=== PATIENT | female | born 1975 | race Caucasian/White ===

== ENCOUNTER 2021-02-21 12:40 | Outpatient (CLI) | payer BC | END 2021-02-21 23:59 | disposition home or self-care (01) | LOC: LAB.N 12:40 | PROVIDERS: ATTEND Physician Assistant Medical | DX: B34.9 Viral infection, unspecified (principal); R05.9 Cough, unspecified; Z20.822 Contact with and (suspected) exposure to COVID-19 | CPT/HCPCS: 87275; 87276 ==

== ENCOUNTER 2022-05-12 01:29 | Emergency (ER) | payer BC ==
--- OUTSIDE RECORDS SUMMARY | 2022-05-12 01:39 | EXTERNAL MEDICAL SUMMARY RPT | Continuity of Care Document ---
:1975 Author Organization [facility] Address [address] [place] [address] Phone Allergies No information. Encounters No information. Functional Status No information. Immunizations No information. Medications No information. Problems date description facility 2022-04-12 13:23 Nontoxic multinodular goiter [facility] 2022-05-07 09:12 Nontoxic multinodular goiter [facility] Procedures No information. Results/Labs test date author facility value unit interpret ation Result panel 1 (unknown) (no (unknown) (unknown) (no value) (units (unk nown) date) unknown) (unknown) (no (unknown) (unknown) * FNA if 1 cm or (units (unknown) date) larger, follow up unknown) if 0.5 cm or larger (every year for 5 (unknown) (no (unknown) (unknown) * FNA if 1.5 cm (units (unknown) date) or larger, follow unknown) up if 1 cm or larger (at 1, 2, 3, and 5 (unknown) (no (unknown) (unknown) * FNA if 2.5 cm (units (unknown) date) or larger, follow unknown) up if 1.5 cm or larger (at 1, 3, and 5 (unknown) (no (unknown) (unknown) 04/12/22 (units (unkno wn) date) unknown) (unknown) (no (unknown) (unknown) 1. Bilateral (units (u nknown) date) thyroid nodules unknown) as described. Recommend continued followup (unknown) (no (unknown) (unknown) [address] [place] [address] (units (unknown) date) unknown) (unknown) (no (unknown) (unknown) [id number] (units (unkno wn) date) unknown) (unknown) (no (unknown) (unknown) ACR TI-RADS (units (un known) date) category: Mildly unknown) suspicious (unknown) (no (unknown) (unknown) ACR TI-RADS (units (un known) date) category: unknown) Moderately suspicious (unknown) (no (unknown) (unknown) ACR TI-RADS (units (un known) date) definitions and unknown) recommendations: (unknown) (no (unknown) (unknown) Accession (units (unkn own) date) Number: unknown) [id number] (unknown) (no (unknown) (unknown) Age/Sex: 46 / F (units (unknown) date) Date of Service: unknown) (unknown) (no (unknown) (unknown) [place], [place] (units ( unknown) date) [id number] unknown) (unknown) (no (unknown) (unknown) Approved by: (units (u nknown) date) Lanre Gonzales M.D. unknown) on 04/14/2022 at 11:34 (unknown) (no (unknown) (unknown) COMPARISON: (units (un known) date) None. unknown) (unknown) (no (unknown) (unknown) Caution: Report (units (unknown) date) not yet finalized unknown) and possibly incomplete! (unknown) (no (unknown) (unknown) Composition: (units (u nknown) date) Predominantly unknown) solid (unknown) (no (unknown) (unknown) Composition: (units (u nknown) date) Solid unknown) (unknown) (no (unknown) (unknown) : 1975 (units (unknown) date) Acct:[id number] unknown) (unknown) (no (unknown) (unknown) Dictated by: (units (u nknown) date) Harjeet Grady RRA unknown) Interpreted: Lanre Gonzales MD on 04/12/2022 at 14:49 (unknown) (no (unknown) (unknown) Draft (units (unkno wn) date) unknown) (unknown) (no (unknown) (unknown) Echogenic foci: (units (unknown) date) None unknown) (unknown) (no (unknown) (unknown) Echogenic foci: (units (unknown) date) None. unknown) (unknown) (no (unknown) (unknown) Echogenicity: (units ( unknown) date) Hypoechoic unknown) (unknown) (no (unknown) (unknown) Echogenicity: (units ( unknown) date) Isoechoic unknown) (unknown) (no (unknown) (unknown) FINDINGS: (units (unkn own) date) unknown) (unknown) (no (unknown) (unknown) IMPRESSION: (units (un known) date) unknown) (unknown) (no (unknown) (unknown) INDICATIONS: (units (u nknown) date) NONTOXIC unknown) MULTINODULAR GOITER (unknown) (no (unknown) (unknown) [facility] (units (unknown) date) unknown) (unknown) (no (unknown) (unknown) Isthmus: 2 mm (units ( unknown) date) thick. unknown) (unknown) (no (unknown) (unknown) Left: Thyroid (units ( unknown) date) lobe measures 3.5 unknown) x 1.7 x 1.5 cm, and is diffusely heterogeneous (unknown) (no (unknown) (unknown) Loc: [place] (units (unkno wn) date) unknown) (unknown) (no (unknown) (unknown) Location: Left (units (unknown) date) inferior lateral unknown) (unknown) (no (unknown) (unknown) Location: Left (units (unknown) date) inferior medial unknown) (unknown) (no (unknown) (unknown) Location: Left (units (unknown) date) inferior unknown) (unknown) (no (unknown) (unknown) Location: Right (units (unknown) date) inferior unknown) (unknown) (no (unknown) (unknown) Margins: Smooth (units (unknown) date) unknown) (unknown) (no (unknown) (unknown) Nodule number: 1 (units (unknown) date) unknown) (unknown) (no (unknown) (unknown) Nodule number: 2 (units (unknown) date) unknown) (unknown) (no (unknown) (unknown) Nodule number: 3 (units (unknown) date) unknown) (unknown) (no (unknown) (unknown) Nodule number: 4 (units (unknown) date) unknown) (unknown) (no (unknown) (unknown) Ordering (units (unkno wn) date) Provider: unknown) Kiki Henriquez P.A-C (unknown) (no (unknown) (unknown) PROCEDURE: US (units ( unknown) date) THYROID unknown) (unknown) (no (unknown) (unknown) Patient: (units (unkno wn) date) JulyWendi Vidales MR#: unknown) [id number] (unknown) (no (unknown) (unknown) Procedure: US (units ( unknown) date) thyroid unknown) (unknown) (no (unknown) (unknown) Real-time (units (unkn own) date) scanning was unknown) performed of the thyroid gland, with image (unknown) (no (unknown) (unknown) Right: Thyroid (units (unknown) date) lobe measures 3.8 unknown) x 1.5 x 1.8 cm, and is diffusely (unknown) (no (unknown) (unknown) Shape: wider (units (u nknown) date) than tall. unknown) (unknown) (no (unknown) (unknown) Signed (units (unkno wn) date) unknown) (unknown) (no (unknown) (unknown) Size: 0.5 x 0.6 (units (unknown) date) x 0.7 cm. unknown) (unknown) (no (unknown) (unknown) Size: 1.1 x 0.8 (units (unknown) date) x 0.9 cm. unknown) (unknown) (no (unknown) (unknown) Size: 1.3 x 0.8 (units (unknown) date) x 0.9 cm. unknown) (unknown) (no (unknown) (unknown) Size: 1.3 x 1.1 (units (unknown) date) x 0.9 cm. unknown) (unknown) (no (unknown) (unknown) TECHNIQUE: (units (unk nown) date) unknown) (unknown) (no (unknown) (unknown) TI-RADS 1 (units (unkn own) date) (benign): 0 unknown) points. FNA not needed. (unknown) (no (unknown) (unknown) TI-RADS 2 (not (units (unknown) date) suspicious): 2 unknown) points. FNA not needed. (unknown) (no (unknown) (unknown) TI-RADS 3 (units (unkn own) date) (mildly unknown) suspicious): 3 points. (unknown) (no (unknown) (unknown) TI-RADS 4 (units (unkn own) date) (moderately unknown) suspicious): 4-6 points. (unknown) (no (unknown) (unknown) TI-RADS 5 (units (unkn own) date) (highly unknown) suspicious): 7 points or more. (unknown) (no (unknown) (unknown) Total points: 3 (units (unknown) date) unknown) (unknown) (no (unknown) (unknown) Total points: 4 (units (unknown) date) unknown) (unknown) (no (unknown) (unknown) Transcribed by: (units (unknown) date) MELI on unknown) 04/12/2022 at 14:51 (unknown) (no (unknown) (unknown) Ultrasound (units (unk nown) date) Report unknown) (unknown) (no (unknown) (unknown) detailed below. (units (unknown) date) unknown) (unknown) (no (unknown) (unknown) documentation. (units (unknown) date) unknown) (unknown) (no (unknown) (unknown) echotexture. (units (u nknown) date) unknown) (unknown) (no (unknown) (unknown) heterogeneous in (units (unknown) date) unknown) (unknown) (no (unknown) (unknown) in (units (unkno wn) date) unknown) (unknown) (no (unknown) (unknown) ultrasound as (units ( unknown) date) unknown) (unknown) (no (unknown) (unknown) years). (units (unkno wn) date) unknown) Social History No information. Vital Signs No information.
--- NOTE | 2022-05-12 01:56 | ED Physician Documentation ---
History of Present Illness - Stated complaint Stated Complaint: ABD PX/CHEST PX - Chief complaint Chief Complaint: Abd Pain - History obtained from History obtained from: Patient - Additonal information Additional information: 47-year-old woman with history of ADHD, borderline high blood pressure, presents with epigastric abdominal pain since 12 noon. This past day with associated nausea and and loose stools. Her daughter had a stomach virus last week and she is pretty sure that is what is going on. She took some leftover Zofran at home with relief but then woke up again in the middle of the night with epigastric pain that was burning. Review of Systems Constitutional: reports: Chills, Myalgias, Fatigue Cardiac: denies: Chest pain / pressure GI: reports: Abdominal Pain, Nausea, Diarrhea. denies: Vomiting, Bloody / black stool : denies: Dysuria PD PAST MEDICAL HISTORY - Past Surgical History Past Surgical History: No - Present Medications Home Medications: Ambulatory Orders Medication Instructions Recorded Confirmed Dextroamphetamine/Amphetamine 30 mg PO DAILY 05/12/22 05/12/22 [Adderall 30 mg Tablet] Ondansetron Odt [Zofran Odt] 4 mg TL Q6H PRN #10 tablet 05/12/22 - Allergies Allergies/Adverse Reactions: Allergies Allergy/AdvReac Type Severity Reaction Status Date / Time latex AdvReac Unknown Verified 05/12/22 01:37 Penicillins AdvReac Unknown Verified 05/12/22 01:37 cats AdvReac Unknown Uncoded 05/12/22 01:37 - Social History Does the pt smoke?: No Smoking Status: Never smoker Does the pt drink ETOH?: Yes Does the pt have substance abuse?: No - Immunizations Immunizations are current?: Yes - POLST Patient has POLST: No PD ED PE NORMAL - Vitals Vital signs reviewed: Yes - General General: Alert and oriented X 3, No acute distress, Well developed/nourished - HEENT HEENT: Atraumatic, PERRL, EOMI - Neck Neck: Supple, no meningeal sign - Cardiac Cardiac: RRR - Respiratory Respiratory: No respiratory distress, Clear bilaterally - Abdomen Abdomen: Non tender, Non distended, Other (Discomfort epigastric palpation) Results - Vitals Vitals: Vital Signs - 24 hr 05/12/22 01:38 Temperature 36.9 C Heart Rate 98 Respiratory 16 Rate Blood Pressure 135/89 H O2 Saturation 97 Oxygen O2 Source Room air - Labs Labs: Laboratory Tests 05/12/22 05/12/22 01:51 01:51 WBC 7.8 RBC 5.33 Hgb 15.7 Hct 47.4 H MCV 88.9 MCH 29.5 MCHC 33.1 RDW 12.3 Plt Count 321 MPV 9.0 Neut # (Auto) 7.0 H Lymph # (Auto) 0.3 L [place] # (Auto) 0.4 Eos # (Auto) 0.1 Baso # (Auto) 0.0 Absolute Nucleated RBC 0.00 Nucleated RBC % 0.0 Sodium 140 Potassium 3.6 Chloride 102 Carbon Dioxide 28 Anion Gap 10.0 BUN 16 Creatinine 0.7 Estimated GFR (MDRD) 90 Glucose 128 H Calcium 9.1 Total Bilirubin 0.6 AST 19 ALT 18 Alkaline Phosphatase 78 Total Protein 8.1 Albumin 4.3 Globulin 3.8 Albumin/Globulin Ratio 1.1 Lipase 29 PD Medical Decision Making - ED course ED course: 47-year-old woman presents with likely viral gastroenteritis. Symptomatic care provided Including Zofran, Pepcid, IV fluids. CBC, abdominal panel Ordered. will reevaluate. Patient feeling better with meds. labwork noncontributory. plan to f/u outpatient pcp or walk in clinic. return precautions given. symptomatic care discussed. Departure - Departure Disposition: 01 Home, Self Care Clinical Impression: Abdominal pain, Diarrhea, Nausea Condition: Good Instructions: ED Diarrhea Viral Prescriptions: Ondansetron Odt [Zofran Odt] 4 mg TL Q6H PRN #10 tablet PRN Reason: Nausea / Vomiting Comments: You were seen in the emergency department for abdominal pain, nausea, and loose stool. You likely have a stomach virus and will need to stay well-hydrated and get lots of rest. Follow-up with your primary care provider. Return to the emergency department for new or worsening symptoms or other concerns.Electronic prescription for Zofran sent to your [facility] pharmacy.
[2022-05-12 02:02] LABS: BASOPHILS % (AUTO) 0.3 %; EOSINOPHILS # (AUTO) 0.1 10^3/uL (0.0-0.7); EOSINOPHILS % (AUTO) 0.6 %; HCT - HEMATOCRIT 47.4 % (37.0-47.0); HGB - HEMOGLOBIN 15.7 g/dL (12.0-16.0); LYMPHOCYTES # (AUTO) 0.3 10^3/uL (1.5-3.5); LYMPHOCYTES % (AUTO) 3.2 %; MEAN CORPUSCULAR HEMOGLOBIN 29.5 pg (27.0-31.0); MEAN CORPUSCULAR HGB CONC 33.1 g/dL (32.0-36.0); MEAN CORPUSCULAR VOLUME 88.9 fL (81.0-99.0); MONOCYTES # (AUTO) 0.4 10^3/uL (0.0-1.0); MONOCYTES % (AUTO) 5.4 %; NEUTROPHILS % (AUTO) 90.1 %; PLT - PLATELET COUNT 321 10^3/uL (130-450); RED BLOOD COUNT 5.33 10^6/uL (4.20-5.40); RED CELL DISTRIBUTION WIDTH 12.3 % (12.0-15.0); WHITE BLOOD COUNT 7.8 x10^3/uL (4.8-10.8)
[2022-05-12 02:12] LABS: ALBUMIN 4.3 g/dL (3.2-5.5); ALBUMIN/GLOBULIN RATIO 1.1 (1.0-2.2); BILIRUBIN,TOTAL 0.6 mg/dL (0.2-1.0); CALCIUM 9.1 mg/dL (8.5-10.3); CREATININE 0.7 mg/dL (0.4-1.0); POTASSIUM 3.6 mmol/L (3.5-5.0); TOTAL PROTEIN 8.1 g/dL (6.7-8.2)
[2022-05-12] MEDS: ONDANSETRON 4 MG/2 ML VIAL IVP STA (02:14)
[2022-05-12] MEDS: FAMOTIDINE 20 MG/2 ML VIAL IVP STA (02:15)
[2022-05-12] MEDS: SODIUM CHLORIDE 0.9% 1,000 ML IV STA (02:15)
[2022-05-12 03:03] VITALS: BP 151/99
== END 2022-05-12 03:03 | disposition home or self-care (01) ==
LOC: ED 01:29
DX: R10.13 Epigastric pain (principal); R11.0 Nausea; R19.7 Diarrhea, unspecified
CPT/HCPCS: 36415; 80053; 83690; 85025; 96361; 96374; 96375; 99283

== ENCOUNTER 2023-01-14 21:21 | Emergency (ER) | payer BC ==
[2023-01-14 21:51] LABS: BILIRUBIN,URINE NEGATIVE (NEGATIVE); GLUCOSE, URINE (UA) NEGATIVE (NEGATIVE); KETONES,URINE (UA) TRACE mg/dL (NEGATIVE); LEUKOCYTE ESTERASE, URINE NEGATIVE (NEGATIVE); NITRITE,URINE NEGATIVE (NEGATIVE); OCCULT BLOOD,URINE SMALL (NEGATIVE); PH,URINE 6.5 PH (5.0-7.5); PROTEIN,URINE 30 mg/dL (NEGATIVE); UROBILINOGEN,URINE 4 E.U./dL (NORMAL)
[2023-01-14 21:52] LABS: BASOPHILS % (AUTO) 0.3 %; EOSINOPHILS % (AUTO) 0.4 %; HCT - HEMATOCRIT 46.8 % (37.0-47.0); HGB - HEMOGLOBIN 15.7 g/dL (12.0-16.0); LYMPHOCYTES # (AUTO) 0.5 10^3/uL (1.5-3.5); LYMPHOCYTES % (AUTO) 6.8 %; MEAN CORPUSCULAR HEMOGLOBIN 29.7 pg (27.0-31.0); MEAN CORPUSCULAR HGB CONC 33.5 g/dL (32.0-36.0); MEAN CORPUSCULAR VOLUME 88.5 fL (81.0-99.0); MEAN PLATELET VOLUME 9.2 fL (7.9-10.8); MONOCYTES # (AUTO) 0.4 10^3/uL (0.0-1.0); MONOCYTES % (AUTO) 5.4 %; NEUTROPHILS # (AUTO) 6.8 10^3/uL (1.5-6.6); NEUTROPHILS % (AUTO) 86.8 %; PLT - PLATELET COUNT 344 10^3/uL (130-450); RED BLOOD COUNT 5.29 10^6/uL (4.20-5.40); RED CELL DISTRIBUTION WIDTH 12.3 % (12.0-15.0); WHITE BLOOD COUNT 7.8 x10^3/uL (4.8-10.8)
[2023-01-14 21:59] VITALS: O2SAT 100
[2023-01-14 22:00] LABS: CLARITY,URINE CLEAR (CLEAR); HCG UR QUAL NEGATIVE; SQUAMOUS EPITHELIAL CELL,UR MANY Squamous (<= Few); WBC,URINE 0-3 /HPF (0-5)
[2023-01-14 22:01] LABS: BACTERIA,URINE Rare /HPF (None Seen); MUCUS,URINE Moderate Strands
[2023-01-14 22:08] LABS: ALBUMIN 4.3 g/dL (3.2-5.5); ALBUMIN/GLOBULIN RATIO 1.3 (1.0-2.2); BILIRUBIN,TOTAL 0.7 mg/dL (0.2-1.0); CALCIUM 8.8 mg/dL (8.5-10.3); CREATININE 0.7 mg/dL (0.6-1.3); POTASSIUM 3.5 mmol/L (3.5-4.5); TOTAL PROTEIN 7.5 g/dL (6.4-8.9)
--- NOTE | 2023-01-14 22:35 | ED Physician Documentation ---
PD HPI ABD PAIN - Stated complaint Stated Complaint: ABD PX/N/V - Chief complaint Chief Complaint: Abd Pain - History obtained from History obtained from: Patient - Additional information Additional information: HPI from patient. Patient woke from sleep at approximately 2 M this morning with nausea , vomiting, and abdominal pain across upper abdomen. Symptoms improved significantly by 7 AM and she felt well most of the day until symptoms rapidly returned at 7:30 PM tonight. Denies h/o similar symptoms. No inciting, exacerbating, nor ameliorating factors. Review of Systems Constitutional: denies: Fever, Chills, Sweats Cardiac: reports: Reviewed and negative Respiratory: reports: Reviewed and negative GI: reports: Abdominal Pain, Nausea, Vomiting. denies: Abdominal Swelling, Constipation, Diarrhea : denies: Dysuria, Frequency PD PAST MEDICAL HISTORY - Past Medical History Past Medical History: Yes Cardiovascular: Hypertension - Past Surgical History Past Surgical History: No - Present Medications Home Medications: Ambulatory Orders Medication Instructions Recorded Confirmed Dextroamphetamine/Amphetamine 30 mg PO DAILY 05/12/22 05/12/22 [Adderall 30 mg Tablet] Ondansetron Odt [Zofran Odt] 4 mg TL Q6H PRN #10 tablet 05/12/22 Ondansetron Odt [Zofran] 4 mg TL Q6H PRN #10 tablet 01/15/23 - Allergies Allergies/Adverse Reactions: Allergies Allergy/AdvReac Type Severity Reaction Status Date / Time latex AdvReac Unknown Verified 01/14/23 21:31 Penicillins AdvReac Unknown Verified 01/14/23 21:31 cats AdvReac Unknown Uncoded 01/14/23 21:31 - Social History Does the pt smoke?: No Smoking Status: Never smoker Does the pt drink ETOH?: No Does the pt have substance abuse?: No - Immunizations Immunizations are current?: Yes - POLST Patient has POLST: No PD ED PE NORMAL - Vitals Vital signs reviewed: Yes - General General: Alert and oriented X 3, No acute distress, Well developed/nourished - HEENT HEENT: Moist mucous membranes - Cardiac Cardiac: RRR, No murmur - Respiratory Respiratory: No respiratory distress, Clear bilaterally - Abdomen Abdomen: Normal bowel sounds, Soft, Non tender, Non distended - Back Back: No CVA TTP Results - Vitals Vitals: Vital Signs - 24 hr 01/14/23 01/14/23 01/14/23 21:27 21:43 23:31 Temperature 37.1 C 36.5 C 36.5 C Heart Rate 108 H 78 76 Respiratory 18 20 18 Rate Blood Pressure 98/70 127/85 H 124/82 H O2 Saturation 98 100 100 Oxygen O2 Source Room air - Labs Labs: Laboratory Tests 01/14/23 01/14/23 01/14/23 21:44 21:44 21:45 WBC 7.8 RBC 5.29 Hgb 15.7 Hct 46.8 MCV 88.5 MCH 29.7 MCHC 33.5 RDW 12.3 Plt Count 344 MPV 9.2 Neut # (Auto) 6.8 H Lymph # (Auto) 0.[address] # (Auto) 0.4 Eos # (Auto) 0.0 Baso # (Auto) 0.0 Absolute Nucleated RBC 0.00 Nucleated RBC % 0.0 Sodium Potassium Chloride Carbon Dioxide Anion Gap BUN Creatinine Estimated GFR (MDRD) Glucose Calcium Total Bilirubin AST ALT Alkaline Phosphatase Total Protein Albumin Globulin Albumin/Globulin Ratio Lipase Urine Color YELLOW Urine Clarity CLEAR Urine pH 6.5 Ur Specific [place] 1.025 Urine Protein 30 H Urine Glucose (UA) NEGATIVE Urine Ketones TRACE Urine Occult Blood SMALL H Urine Nitrite NEGATIVE Urine Bilirubin NEGATIVE Urine Urobilinogen 4 H Ur Leukocyte Esterase NEGATIVE Urine RBC 6-10 H Urine WBC 0-3 Ur Squamous Epith Cells MANY Squamous H Urine Bacteria Rare Urine Mucus Moderate Strands Ur Microscopic Review INDICATED Urine Culture Comments NOT INDICATED Urine HCG, Qual NEGATIVE 01/14/23 21:45 WBC RBC Hgb Hct MCV MCH MCHC RDW Plt Count MPV Neut # (Auto) Lymph # (Auto) Lane # (Auto) Eos # (Auto) Baso # (Auto) Absolute Nucleated RBC Nucleated RBC % Sodium 135 Potassium 3.5 Chloride 101 Carbon Dioxide 26 Anion Gap 8.0 BUN 18 Creatinine 0.7 Estimated GFR (MDRD) 90 Glucose 127 H Calcium 8.8 Total Bilirubin 0.7 AST 17 ALT 17 Alkaline Phosphatase 88 Total Protein 7.5 Albumin 4.3 Globulin 3.2 Albumin/Globulin Ratio 1.3 Lipase 19 Urine Color Urine Clarity Urine pH Ur Specific [place] Urine Protein Urine Glucose (UA) Urine Ketones Urine Occult Blood Urine Nitrite Urine Bilirubin Urine Urobilinogen Ur Leukocyte Esterase Urine RBC Urine WBC Ur Squamous Epith Cells Urine Bacteria Urine Mucus Ur Microscopic Review Urine Culture Comments Urine HCG, Qual PD Medical Decision Making - ED course Complexity details: reviewed results, considered differential, d/w patient ED course: Normal CBC (except noncontributory/insignificant findings of 6.8 neutrophil#, 0.5 lymphocyte#), normal ER abdominal panel except insignificant/noncontributory findings of glucose 127. UHCG negative. UA with 6-10 rbc/hpf but no WBC, rare bacteria but many squamous cells (thus considered contaminated specimen). She is nontender on abdominal exam. We discussed further testing options, specifically RUQ US (considering episodic upper abdominal pain with n/v). Patient says she feels symptoms have again resolved and wishes to defer further testing until/unless symptoms reoccur. She says she will follow up with PCP. Return precautions are reviewed. Departure - Departure Disposition: 01 Home, Self Care Clinical Impression: Abdominal pain Condition: Good Instructions: ED Abdominal Pain Female Non-Specific Abdominal Pain, ED Nausea Vomiting Prescriptions: Ondansetron Odt [Zofran] 4 mg TL Q6H PRN #10 tablet PRN Reason: Nausea / Vomiting Comments: There were no concerning nor diagnostic findings on tonight's blood tests. The cause of your nausea and vomiting as well as abdominal pain is not apparent at this time. I have electronically submitted a prescription for an antinausea medication (ondansetron) to the [facility] pharmacy in [place]. Forms: PCP List Discharge Date/Time: 01/14/23 23:49
[2023-01-14] MEDS ORDERED: KETOROLAC 30 MG/ML VIAL IVP STA (23:27)
[2023-01-14] MEDS ORDERED: ONDANSETRON 4 MG/2 ML VIAL IVP STA (23:27)
[2023-01-14 23:44] VITALS: BP 124/82
--- NOTE | 2023-01-15 10:15 | ED Physician Documentation ---
ED Addendum - Addendum Addendum: 01/15/23 10:14 Patient seen last night for abdominal pain was expecting to get a prescription for Zofran which was not available at the pharmacy I have reviewed the patient's discharge instructions found that a prescription was not entered and I entered the prescription and E scribed it to [facility] in [place].
== END 2023-01-14 23:49 | disposition home or self-care (01) ==
LOC: ED 21:21
DX: R10.10 Upper abdominal pain, unspecified (principal); I10 Essential (primary) hypertension
CPT/HCPCS: 36415; 80053; 81001; 81003; 81025; 83690; 85025; 87086; 96374; 99283